=== PATIENT | female | born 1985 | race Caucasian/White ===

== ENCOUNTER 2019-06-29 08:44 | Outpatient (CLI) | payer OTHER, SELFPAY ==
--- NOTE | 2019-06-29 09:25 | ECHO_ITS ---
Patient Info Name: Rand Ferreira Age: 33 years : 1985 Gender: Female Ht: 66 in Wt: 130 lbs BSA: 1.66 m2 HR: 72 bpm BP: 123 / 74 mmHg Technical Quality: Good Exam Date: 06/29/2019 9:32 AM Exam Location: [facility] Patient Status: Outpatient Admit Date: 06/29/2019 Staff Ordering Physician: Len Holbrook DO Quantitative Developer: Tigist Culver RDCS Attending Provider: Len Holbrook DO Referring Physician: Yusef SANTACRUZ; Exam Type: CA echo doppler color flow Study Info Indications - PALPITATIONS Complete two-dimensional, color flow and Doppler transthoracic echocardiogram is performed. Summary 1. Left ventricular chamber dimension is normal. 2. Left ventricular systolic function is normal, estimated at 60-65%. 3. The left ventricular diastolic function is normal. 4. E/e' 6 is not elevated. 5. There is trace tricuspid valve regurgitation. 6. No pulmonary hypertension, estimated pulmonary arterial systolic pressure is 23 mmHg. Left Ventricle E/e' 6 is not elevated. Left ventricular chamber dimension is normal. Left ventricular systolic function is normal, estimated at 60-65%. The left ventricular diastolic function is normal. Right Ventricle Right ventricular chamber dimension is normal. Right ventricular systolic function is normal. Left Atria Left atrial chamber dimension is normal. Right Atria Right atrial chamber dimension is normal. Aortic Valve The aortic valve is trileaflet. There is no aortic valve stenosis. There is no aortic valve regurgitation. Pulmonic Valve There is no pulmonic regurgitation. Mitral Valve There is no mitral valve stenosis. There is no mitral valve regurgitation. Tricuspid Valve There is trace tricuspid valve regurgitation. No pulmonary hypertension, estimated pulmonary arterial systolic pressure is 23 mmHg. Pericardium/Pleural There is no pericardial effusion. Inferior Vena Cava Normal inferior vena cava with >50% collapse upon inspiration consistent with normal right atrial pressure, 5 mmHg. Aorta The aortic root size at the sinus of Valsalva is normal. Left Ventricular Outflow Tract Name Value Normal LVOT 2D LVOT Diameter 2.0 cm LVOT Doppler LVOT Peak Gradient 4 mmHg LVOT Mean Gradient 2 mmHg LVOT VTI 19 cm LVOT VTI/AV VTI Ratio 0.9 LVOT Stroke Volume 59 ml LVOT CO 12.2 l/min LVOT CI 7.4 l/min/m2 Pulmonic Valve Name Value Normal PV Doppler PV Peak Gradient 3 mmHg Mitral Valve Name Value Normal
== END 2019-06-29 08:45 | disposition home or self-care (01) ==
PROVIDERS: PCP Emergency Medicine; Visit Provider Internal Medicine Cardiovascular Disease
DX: R00.2 Palpitations (principal)
CPT/HCPCS: 93306

== ENCOUNTER 2020-08-22 13:57 | Outpatient (CLI) | payer OTHER, SELFPAY ==
--- NOTE | ~2020-08-22 | MMUS_ITS ---
EXAMINATION: MM diagnostic grover RT w chandler, US breast RT limited HISTORY: Follow-up breast asymmetry TECHNIQUE: Additional 3-D tomosynthesis images of the right breast were performed and synthetic 2-D i mages were generated. CAD analysis was submitted and interpreted. High resolution Limited right breas t ultrasound was performed. COMPARISON: Comparison to multiple prior studies sequentially, with oldest reviewed study dated 12/13. BREAST PARENCHYMAL COMPOSITION: The breasts are heterogenously dense, which may obscure small masses. FINDINGS: MAMMOGRAPHIC FINDINGS: There are no suspicious masses, calcifications or architectural distortion in the right breast to sug gest malignancy. Stable focal asymmetry medial aspect of the right breast. ULTRASOUND: Limited right breast ultrasound: Normal heterogeneous echotexture without focal solid or cystic mass. IMPRESSION: 1. No evidence for malignancy in the right breast. 2. Routine yearly screening mammogram and regular clinical breast examination are recommended. BI-RADS Category 1: Negative Reviewed, dictated and finalized at location A. IMPRESSION: 1. No evidence for malignancy in the right breast. 2. Routine yearly screening mammogram and regular clinical breast examination a re recommended. BI-RADS Category 1: Negative
== END 2020-08-22 13:58 | disposition home or self-care (01) ==
LOC: ANHIMG 13:59
PROVIDERS: PCP Emergency Medicine; Visit Provider Nurse Practitioner Obstetrics & Gynecology
DX: R92.8 Other abnormal and inconclusive findings on diagnostic imaging of breast (principal)
CPT/HCPCS: 76642; 77061; 77065; G0279

== ENCOUNTER 2022-06-29 18:34 | Emergency (ER) | payer OTHER, SELFPAY ==
[2022-06-29 18:59] VITALS: BP 106/71; PULSE 79; RESP 18; TEMP 36.2; O2SAT 100
[2022-06-29 19:03] VITALS: BP 106/71; PULSE 79; RESP 18; TEMP 36.2; O2SAT 100
--- NOTE | 2022-06-29 19:28 | ED.URI ---
HPI - URI/Sore Throat General Chief Complaint: Upper Respiratory Infection Stated Complaint: cough,fever,rt wrist injury Time Seen by Provider: 06/29/22 19:28 Source: patient Mode of arrival: ambulatory Limitations: no limitations History of Present Illness HPI Narrative: 36-year-old female presents with complaint of sinus congestion, pressure, facial pain for 2 weeks. Afebrile. Reports that her nasal drainage is green. Patient is taking Motrin to treat pain. Is not taking any decongestants or antihistamines due to . No other complaints today. All systems reviewed and negative except as noted above. Related Data Allergies Allergy/AdvReac Type Severity Reaction Status Date / Time iodine AdvReac Severe Anaphylactic Verified 06/29/22 18:42 Shock aspirin AdvReac Intermediate Chest Pain Verified 06/29/22 18:42 caffeine AdvReac Intermediate SECONDARY Verified 06/29/22 18:42 TO MITRAL VALVE PROLAPSE Review of Systems Review of Systems: CONSTITUTIONAL: Denies fever, chills, or sweats. EYES: Denies visual changes, redness, or discharge. ENT: Reports rhinorrhea, congestion, sinus pressure. Denies sore throat, or otalgia. CARDIOVASCULAR: Denies chest pain, palpitations, or edema. RESPIRATORY: Denies cough or dyspnea. GASTROINTESTINAL: Denies abdominal pain, nausea, vomiting, or diarrhea. GENITOURINARY: Denies dysuria or hematuria. SKIN: Denies rash or itching. MUSCULOSKELETAL: Denies back pain, joint pain, or myalgia. NEUROLOGIC: Denies headache, numbness, or weakness. PSYCHIATRIC: Denies anxiety or depression. All other systems reviewed are negative, except as documented in HPI. [facility] Past Medical History Medical History (Updated 06/29/22 @ 19:36 by Ekaterina Allison NP) History of migraine headaches Intermittent palpitations Tachyarrhythmia Family History Family History (Updated 06/07/19 @ 11:05 by Graciela Snow CMA) Father Colon cancer Mother Breast tumor Grandparent Aortic body tumor Social History Social History Gender identity (if verbalized by the patient): Female Comments At time of signature, agree with nursing past medical, surgical, social and family history. There is no relevant family history pertinent to the presenting complaint. Exam Narrative: GENERAL: This is a well-nourished, well-developed patient, in no apparent distress. HEAD: normocephalic, atraumatic. EYES: PERRL. Sclera clear/white. Vision is grossly intact. EARS: External ears normal, auditory canals clear and without drainage, TMs normal without perforation. Hearing grossly intact. NOSE: External nose normal with irregular nasal drainage, erythema and swelling to both nares. Bilateral frontal and maxillary sinus tenderness. THROAT: Mucous membranes moist, Postnasal drainage and erythema. NECK: Neck supple, non-tender without lymphadenopathy, masses or thyromegaly. CARDIOVASCULAR: Regular rate and rhythm without murmurs, gallops, or rubs. RESPIRATORY: Clear to auscultation. Breath sounds equal bilaterally. No wheezes, rales, or rhonchi. SKIN: warm, Dry, intact with no suspicious lesions or rash, good texture and turgor. NEURO: awake, alert, and oriented to person, place and time. There were no obvious focal neurologic abnormalities. EXTREMITIES: No joint tenderness, effusion, or edema noted. Course Course Level of Care: Express Care Visit Vital Signs Vital signs: Vital Signs Temperature 36.2 C L 06/29/22 18:59 Pulse Rate 79 06/29/22 18:59 Respiratory Rate 18 06/29/22 18:59 Blood Pressure 106/71 06/29/22 18:59 Pulse Oximetry 100 06/29/22 18:59 Oxygen Delivery Room Air 06/29/22 18:59 Temperature 36.2 C L 06/29/22 19:03 Pulse Rate 79 06/29/22 19:03 Respiratory Rate 18 06/29/22 19:03 Blood Pressure 106/71 06/29/22 19:03 Pulse Oximetry 100 06/29/22 19:03 Oxygen Delivery Room
== END 2022-06-29 19:37 | disposition home or self-care (01) ==
PROVIDERS: Emergency Provider Nurse Practitioner Family; PCP Emergency Medicine
DX: J01.90 Acute sinusitis, unspecified (principal)
CPT/HCPCS: 99213; G0463

== ENCOUNTER 2022-09-10 10:28 | Emergency (ER) | payer OTHER, SELFPAY ==
[2022-09-10 10:37] VITALS: BP 108/83; PULSE 86; RESP 16; TEMP 36.7; O2SAT 98
--- NOTE | 2022-09-10 10:52 | ED.URI ---
HPI - URI/Sore Throat General Chief Complaint: Upper Respiratory Infection Stated Complaint: sore throat; swollen tonsils; white patches Time Seen by Provider: 09/10/22 10:44 Source: patient and RN notes reviewed Mode of arrival: ambulatory Limitations: no limitations History of Present Illness HPI Narrative: Patient presents today complaining of a 4 day history of sore throat, fever, body aches, chills. Symptoms have worsened today. Currently rates her pain 9/10 and has been taking ibuprofen and using Chloraseptic spray without relief. Reports to children at home have also been sick with similar symptoms. Related Data Allergies Allergy/AdvReac Type Severity Reaction Status Date / Time iodine AdvReac Severe Anaphylactic Verified 09/10/22 10:36 Shock aspirin AdvReac Intermediate Chest Pain Verified 09/10/22 10:36 caffeine AdvReac Intermediate SECONDARY Verified 09/10/22 10:36 TO MITRAL VALVE PROLAPSE Review of Systems Review of Systems: CONSTITUTIONAL: Denies sweats.+ fever, body aches, chills EYES: Denies visual changes, redness, or discharge. ENT: Denies rhinorrhea, congestion, or otalgia.+ sore throat CARDIOVASCULAR: Denies chest pain, palpitations, or edema. RESPIRATORY: Denies cough or dyspnea. GASTROINTESTINAL: Denies abdominal pain, nausea, vomiting, or diarrhea. GENITOURINARY: Denies dysuria or hematuria. SKIN: Denies rash, itching, or wounds. MUSCULOSKELETAL: Denies back pain, joint pain, or myalgia. NEUROLOGIC: Denies headache, numbness, tingling, or weakness. PSYCH: Denies depression or anxiety. [facility] Past Medical History Medical History History of migraine headaches Intermittent palpitations Tachyarrhythmia Family History Family History Father Colon cancer Mother Breast tumor Grandparent Aortic body tumor Social History Social History Gender identity (if verbalized by the patient): Female Comments At time of signature, I have reviewed and agree with nursing past medical, surgical, social and family history unless otherwise noted. Please see nursing chart for further information. There is no relevant family history pertinent to the presenting complaint Exam Narrative: GENERAL: Well-appearing, well-nourished, and in no acute distress. HEAD: Normocephalic, atraumatic. EYES: EOMI. No redness or drainage. Conjunctivae normal. ENT: Mucous membranes pink and moist. Nares clear. No rhinorrhea. TMs normal bilaterally. Throat erythematous without edema. Small amount of white exudate on bilateral tonsils. Tonsils 1-2+. Uvula midline. NECK: Normal AROM. Supple. No lymphadenopathy. CHEST: No respiratory distress. Clear to auscultation. HEART: Regular rate and rhythm. No murmur appreciated. EXTREMITIES: Normal range of motion. No edema. SKIN: Warm, dry, no rash. Capillary refill normal. Normal skin turgor. NEURO: No focal deficits. Alert and oriented x3. Gait steady. PSYCH: Normal affect. No signs of depression or anxiety. Course Course Level of Care: Express Care Visit Vital Signs Vital signs: Vital Signs Temperature 98.1 F 09/10/22 10:37 Pulse Rate 86 09/10/22 10:37 Respiratory Rate 16 09/10/22 10:37 Blood Pressure 108/83 09/10/22 10:37 Pulse Oximetry 98 09/10/22 10:37 Oxygen Delivery Room Air 09/10/22 10:37 Temperature 98.1 F 09/10/22 10:37 Pulse Rate 86 09/10/22 10:37 Respiratory Rate 16 09/10/22 10:37 Blood Pressure 108/83 09/10/22 10:37 Pulse Oximetry 98 09/10/22 10:37 Oxygen Delivery Room Air 09/10/22 10:37 Reviewed. Pt has been instructed to follow up with her PCP regarding her elevated blood pressure today. MDM - URI/Sore Throat MDM Narrative Medical decision making narrative: Rapid strep negative. Culture pend
== END 2022-09-10 11:02 | disposition home or self-care (01) ==
PROVIDERS: Emergency Provider Nurse Practitioner; PCP Emergency Medicine
DX: J06.9 Acute upper respiratory infection, unspecified (principal)
CPT/HCPCS: 87081; 87880; 99213; G0463

== ENCOUNTER 2023-01-19 08:45 | Emergency (ER) | payer OTHER, MEDICAID, SELFPAY ==
--- NOTE | 2023-01-19 08:51 | ED.LOWEXIN ---
HPI - Extremity Injury (Lower) General Chief Complaint: Extremity Injury, Lower Stated Complaint: Rt Ankle Pain Time Seen by Provider: 01/19/23 09:29 Source: patient and RN notes reviewed Mode of arrival: ambulatory Limitations: no limitations History of Present Illness HPI Narrative: 37-year-old female presents concern for right ankle pain. Reports 3 weeks ago she rolled her ankle and had subsequent bruising and swelling. Reports bruising and swelling have resolved she continues to have pain seems to be worsening. Reports pain at rest and worsening pain with weight-bearing. She reports pain with flexion of the ankle, relief with extension of the ankle. She denies redness, warmth of the ankle MD complaint: ankle injury Related Data Allergies Allergy/AdvReac Type Severity Reaction Status Date / Time iodine AdvReac Severe Anaphylactic Verified 09/10/22 10:36 Shock aspirin AdvReac Intermediate Chest Pain Verified 09/10/22 10:36 caffeine AdvReac Intermediate SECONDARY Verified 09/10/22 10:36 TO MITRAL VALVE PROLAPSE Review of Systems Review of Systems: CONSTITUTIONAL: Denies malaise, chills, sweats, or fever. SKIN: Denies rash or itching, open skin, laceration, abrasion, redness, warmth, swelling. MUSCULOSKELETAL: Reports right ankle pain NEUROLOGIC: Denies numbness, weakness All systems reviewed & are unremarkable except as noted in HPI and below PMFSH Past Medical History Medical History History of migraine headaches Intermittent palpitations Tachyarrhythmia Family History Family History Father Colon cancer Mother Breast tumor Grandparent Aortic body tumor Social History Social History Gender identity (if verbalized by the patient): Female Comments At time of signature, agree with nursing past medical, surgical, social and family history. There is no relevant family history pertinent to the presenting complaint Exam Narrative: GENERAL: Well-appearing, well-nourished, and in no acute distress. HEAD: Normocephalic, atraumatic. EYES: PERRLA, conjunctivae clear NECK: Supple. CHEST: Speaks in full sentences. No respiratory distress. HEART: Regular rate and rhythm. Normal and equal peripheral pulses. EXTREMITIES: Right ankle has grossly normal strength and sensation, grossly normal range of motion. No edema or ecchymosis. Normal sensation with sensitivity to light touch and pain. Lateral ankle tenderness. No open wounds, no skin tenting, no devitalized tissue or atrophy, no trophic changes, no obvious deformity, alignment normal, nearby joints and structures intact. Distal pulses palpable and equal bilaterally, skin warm, dry, pink. Capillary refill less than 3 seconds. SKIN: Warm, dry, no rash. NEURO: Alert and oriented x3. PSYCH: Normal mood and affect Course Course Emergency Course: Patient is aware of diagnosis, understands and agrees to treatment plan. Anticipatory guidance given. Patient agrees to follow-up as directed and is aware of reasons to seek care at the emergency department. Portions of this record may have been created with voice recognition software Level of Care: Express Care Visit Vital Signs Vital signs: Reviewed. MDM - Extremity Injury (Lower) MDM Narrative Medical decision making narrative: Patients injury and pain is consistent with musculoskeletal etiology. No signs of neurological or vascular compromise on exam. Compartments and tissues are soft without signs of compartment syndrome. Pain is felt appropriate for further evaluation on an outpatient basis. Critical Care Time Critical Care Time Critical Care Time: No Discharge Plan Discharge Clinical Impression: Ankle sprain Patient Disposition: Home, Self-Care Condition: Stable Instructions: Ankle Sprain
[2023-01-19 08:57] VITALS: BP 123/76; PULSE 85; RESP 16; TEMP 36.7; O2SAT 100
== END 2023-01-19 09:44 | disposition home or self-care (01) ==
PROVIDERS: Emergency Provider Nurse Practitioner; PCP Emergency Medicine
DX: S93.401A Sprain of unspecified ligament of right ankle, initial encounter (principal); X50.0XXA Overexertion from strenuous movement or load, initial encounter
CPT/HCPCS: 73610; 99213; G0463

== ENCOUNTER 2024-02-11 10:21 | Emergency (ER) | payer OTHER, SELFPAY ==
--- NOTE | ~2024-02-11 | XR_ITS ---
EXAMINATION: XR chest 2V DATE: 02/11/2024 10:53 INDICATION: Cough. TECHNIQUE: Frontal and lateral views of the chest were obtained. COMPARISON: Chest 2 views 05/03/2019 FINDINGS: There is no pneumonia, pleural effusion, or pneumothorax. The heart size is normal. IMPRESSION: 1. No acute cardiopulmonary disease. Reviewed, dictated and finalized at location A.
--- NOTE | 2024-02-11 10:30 | ED.GENADULT ---
HPI - General Adult General Chief complaint: Upper Respiratory Infection Stated complaint: congestion / cough Time Seen by Provider: 02/11/24 10:30 Source: patient Mode of arrival: ambulatory Limitations: no limitations History of Present Illness HPI narrative: 38-year-old female patient presents to the [facility] with complaints of a cough and cold symptoms for the past week to 8 days. Patient states that her was diagnosed with pneumonia on 01/29. Patient states she has had cough, sweats, feeling clammy denies any fevers that she is aware of. Patient denies any chest pain or shortness of breath. Denies any abdominal pain, nausea, vomiting or diarrhea. Patient states she has just been taking [id number] Tylenol and ibuprofen denies any cough medications. Related Data Allergies Allergy/AdvReac Type Severity Reaction Status Date / Time iodine AdvReac Severe Anaphylactic Verified 02/11/24 10:31 Shock aspirin AdvReac Intermediate Chest Pain Verified 02/11/24 10:31 caffeine AdvReac Intermediate SECONDARY Verified 02/11/24 10:31 TO MITRAL VALVE PROLAPSE Review of Systems Review of Systems: CONSTITUTIONAL: Denies fever, Positive clammy and chills, positive sweats. EYES: Denies visual changes, redness, or discharge. ENT: Denies rhinorrhea, positive congestion, positive sore throat, denies otalgia. CARDIOVASCULAR: Denies chest pain, palpitations, or edema. RESPIRATORY: positive cough denies dyspnea. GASTROINTESTINAL: Denies abdominal pain, nausea, vomiting, or diarrhea. GENITOURINARY: Denies dysuria or hematuria. SKIN: Denies rash or itching. MUSCULOSKELETAL: Denies back pain, joint pain, or myalgia. NEUROLOGIC: Denies headache, numbness, or weakness. PSYCHIATRIC: Denies anxiety or depression. [facility] Past Medical History Medical History History of migraine headaches Intermittent palpitations Sprain of ankle, right Tachyarrhythmia Family History Family History Father Colon cancer Mother Breast tumor Grandparent Aortic body tumor Unknown Asthma Hypertension Arthritis Neuropathy Social History Social History Smoking status: Never smoker Gender identity (if verbalized by the patient): Female Comments At the time of my signature I agree with nursing past medical history, surgical, social, and family history. There is no relevant family history pertinent to the presenting complaint. Exam Narrative: GENERAL: Well-appearing, well-nourished, and in no acute distress. HEAD: Normocephalic, atraumatic. EYES: PERRLA and EOMI. ENT: Nares with erythema edema noted bilaterally, no rhinorrhea or epistaxis. Mucous membranes moist. posterior pharynx with no erythema, tonsillar enlargement, exudates or lesions present. Bilateral TMs are clear no erythema or foreign bodies canal. NECK: Supple. No lymphadenopathy CHEST: Clear to auscultation. No respiratory distress. Patient able talk in clear complete sentences. No tripoding noted HEART: Regular rate and rhythm. No murmur heard. Normal peripheral pulses. ABDOMEN: Soft, nontender, nondistended, normal active bowel sounds. EXTREMITIES: Normal range of motion. No edema. SKIN: Warm, dry, no rash. NEURO: No focal deficits. Alert and oriented x3. Course Course Level of Care: Express Care Visit Reevaluation(s) Reevaluation #1: re-evaluated patient and notified her that her x-ray is negative for pneumonia. Discussed with patient this is most likely viral and hopefully she will start having improving symptoms. I did provide her a prescription for Tessalon Perles, albuterol inhaler and a small steroid Dosepak to help with the coughing and inflammation. Discussed with patient if she continues to have worsening symptoms such as chest pain or shortness of breath or starts to spike fevers she needs to be re-evaluated by The ER or her primary doctor for further evaluation treatment. Date: 02/11/24 Time: 11:12 Vital Signs Vital signs: Vital Signs Temperature 36.6 C 02/11/24 10:31 Pulse Rate 78 02/11/24 10:31 Respiratory Rate 18 02/11/24 10:31 Blood Pressure 125/81 02/11/24 10:31 Pulse Oximetry 100 02/11/24 10:31 Oxygen Delivery Room Air 02/11/24 10:31 Temperature 36.6 C 02/11/24 10:32 Pulse Rate 78 02/11/24 10:32 Respiratory Rate 18 02/11/24 10:32 Blood Pressure 125/81 02/11/24 10:32 Pulse Oximetry 100 02/11/24 10:32 Oxygen Delivery Room Air 02/11/24 10:32 vital signs reviewed. Medical Decision Making MDM Narrative Medical decision making narrative: Plan care patient is swabbed her for strep since she has been having a sore throat just to rule out any need for antibiotics. Did offer the COVID and influenza swab but she has refused those at this time. Patient is concerned that she might have pneumonia as since her was recently diagnosed. Discussed with patient her lungs do sound clear but we will do a chest x-ray for reassurance. Discussed with patient if the x-ray is clear most likely this is viral and will need to take it time to run its course. Will reassess patient once this has resulted. Differential Diagnosis Differential Diagnosis: Differential diagnosis: Allergic rhinitis, chronic sinusitis, tonsillitis, acute sinusitis, infectious mononucleosis, seasonal influenza, pertussis, diphtheria, meningococcal disease, viral syndrome, viral bronchitis, RSV, COVID-19 Vital Signs Vital Signs: Vital Signs Temperature 36.6 C 02/11/24 10:31 Pulse Rate 78 02/11/24 10:31 Respiratory Rate 18 02/11/24 10:31 Blood Pressure 125/81 02/11/24 10:31 Pulse Oximetry 100 02/11/24 10:31 Oxygen Delivery Room Air 02/11/24 10:31 Temperature 36.6 C 02/11/24 10:32 Pulse Rate 78 02/11/24 10:32 Respiratory Rate 18 02/11/24 10:32 Blood Pressure 125/81 02/11/24 10:32 Pulse Oximetry 100 02/11/24 10:32 Oxygen Delivery Room Air 02/11/24 10:32 Lab Data Labs: Lab Results 02/11/24 Range/Units 10:59 POC Grp A Strep Screen Negative (Negative) Imaging Data Radiologist's impression: [address] [id number] XRay Report Signed Patient: Rand Couch : 1985 MR#: [id number] Age: 38 Acct:[id number] Loc: [facility] ADM Date: 02/11/24Attending Dr: Ordering Physician: Annalise Glasgow APRN Date of Service: 02/11/24 Procedure(s): XR chest 2V Accession Number(s): [id number] cc: Macario Arias MD; Annalise Glasgow APRN~ EXAMINATION: XR chest 2V DATE: 02/11/2024 10:53 INDICATION: Cough. TECHNIQUE: Frontal and lateral views of the chest were obtained. COMPARISON: Chest 2 views 05/03/2019 FINDINGS: There is no pneumonia, pleural effusion, or pneumothorax. The heart size is normal. IMPRESSION: 1. No acute cardiopulmonary disease. Reviewed, dictated and finalized at location A. Dictated By: Kp Cornell MD 02/11/24 1057 Signed By: <Electronically signed by Kp Cornell MD in OV> Critical Care Time Critical Care Time Critical Care Time: No Discharge Plan Discharge Clinical Impression: Viral URI with cough Patient Disposition: Home, Self-Care Condition: Stable Instructions: Antibiotic Form, Viral Syndrome (ED) Additional Instructions: Viral illness may last between 7-12days; antibiotic is NOT recommended at this time. Recommend antihistamine such as Benadryl at night time and Claritin/Zyrtec/Karin during the day Cough syrup may cause drowsiness; avoid driving or take it at night time. Use inhaler as needed for cough, wheezing, shortness of breath or chest tightness. Also, recommend symptomatic treatment includes: rest, fluids, and increase humidity of the air at home. Recommend Acetaminophen or nonsteroidal anti-inflammatory agents (NSAIDs) as directed in the bottle to reduce fever and/pain/headache. Avoid smoking/second-hand smoke. Limit visits to areas with large crowds. Please schedule a follow-up visit with your personal physician for further evaluation and treatment within 3-5days. Including recheck and discussion of your blood pressure. If your symptoms persist, change or worsen significantly before you can contact your personal physician then please, without delay, go to the emergency department for further evaluation. Prescriptions: New benzonatate 200 mg capsule 200 mg PO TID PRN (Reason: cough) 10 Days Qty: 30 0RF albuterol sulfate [Ventolin HFA] 90 mcg/actuation HFA aerosol inhaler 2 puff INHALATION .Q4 hours PRN (Reason: cough) Qty: 18 0RF methylprednisolone 4 mg tablets,dose pack See Rx Instructions PO .COMPLEX Qty: 21 0RF Rx Instructions: for 6 days Follow-up/Referrals: Macario Arias MD [Primary Care Provider] - Time of Disposition: 11:09
[2024-02-11 10:31] VITALS: BP 125/81; PULSE 78; RESP 18; TEMP 36.6; O2SAT 100
[2024-02-11 10:32] VITALS: BP 125/81; PULSE 78; RESP 18; TEMP 36.6; O2SAT 100
[2024-02-11 11:02] LABS: EDSTREPNEGPOS1 Negative (Negative)
== END 2024-02-11 11:13 | disposition home or self-care (01) ==
PROVIDERS: Emergency Provider Nurse Practitioner Family; PCP Emergency Medicine
DX: J06.9 Acute upper respiratory infection, unspecified (principal); R05.9 Cough, unspecified
CPT/HCPCS: 71046; 87081; 87880; 99213; G0463